=== PATIENT | male | born 1940 | race Caucasian/White ===

== ENCOUNTER → 2022-12-25 | Outpatient (CLI) | payer MEDICARE, OTHER ==
[~2022-12-25] MED LIST: FLOMAX 0.40.4 MG/CAP PO; PEPCID40 MG PO
== END ==
LOC: COL.RAD 07:07
DX: Z01.812 Encounter for preprocedural laboratory examination (principal); K57.30 Diverticulosis of large intestine without perforation or abscess without bleeding; K62.5 Hemorrhage of anus and rectum; R19.4 Change in bowel habit

== ENCOUNTER 2023-01-24 10:40 | Outpatient (RCR) | payer MEDICARE, OTHER | END 2023-02-01 | disposition home or self-care (01) | LOC: PT.GENESIS | DX: M25.562 Pain in left knee (principal) ==

== ENCOUNTER 2023-02-12 08:30 | Outpatient (RCR) | payer MEDICARE, OTHER | END 2023-03-03 | disposition home or self-care (01) | LOC: PT.GENESIS | DX: M25.562 Pain in left knee (principal) ==

== ENCOUNTER 2024-08-09 10:24 | Inpatient (IN) | payer MEDICARE, OTHER ==
[~2024-08-09] VITALS: Ht 182.9 cm; Wt 80.5 kg
[2024-08-09] MEDS ORDERED: Morphine 4 MG/ML VIAL IV ONE (11:00)
[2024-08-09 11:14] LABS: BASO % 0.3 % (0.0-2.0); EOS # 0.2 K/mm3 (0.0-0.7); EOS % 3.7 % (0.0-4.0); GRAN # 4.4 K/mm3 (1.4-6.5); HEMATOCRIT 37.3 % (42.0-52.0); HEMOGLOBIN 12.3 g/dl (13.5-18.0); LYMPH # 1.2 K/mm3 (1.2-3.4); LYMPH % 17.9 % (20.0-51.0); MEAN CELL VOLUME 88 fl (80.0-100.0); MEAN CORPUSCULAR HEMOGLOBIN 29 pg (27-31); MEAN CORPUSCULAR HGB CONC 33 g/dl (33.0-37.0); MEAN PLATELET VOLUME 9.7 fl (7.4-10.4); MONO # 0.6 K/mm3 (0.1-0.6); MONO % 9.8 % (1.7-9.3); PLATELET COUNT 231 K/mm3 (130-400); RED BLOOD COUNT 4.22 M/mm3 (4.20-5.60); REDCELL DISTRIBUTION WIDTH-CV 14.1 % (11.5-14.5)
[2024-08-09 11:21] LABS: ERYTHROCYTE SEDIMENTATION RATE 4 mm/hr (0-30)
[2024-08-09 11:43] LABS: ALBUMIN 3.5 g/dL (3.4-4.8); BILIRUBIN,TOTAL 0.4 mg/dL (0.2-1.2); C-REACTIVE PROTEIN 1.05 mg/dL (0.00-0.50); CALCIUM 9.2 mg/dL (8.4-10.2); CREATININE, serum 1.02 mg/dL (0.72-1.25); POTASSIUM 4.6 mEq/L (3.5-4.5); TOTAL PROTEIN 6.2 g/dl (6.2-8.1)
[2024-08-09] MEDS ORDERED: Ketorolac 15 MG/ML VIAL IV ONE (12:30)
[2024-08-09] MEDS ORDERED: DURICEF 500MG500 MG PO (13:02)
[2024-08-09] MEDS ORDERED: oxyCODONE 5 MG TAB PO PRN (13:45)
[2024-08-09] MEDS ORDERED: Acetaminophen 500 MG TAB PO PRN (13:45)
[2024-08-09] MEDS ORDERED: Ondansetron 4 MG/2 ML VIAL IV PRN (13:45)
[2024-08-09] MEDS ORDERED: Morphine 4 MG/ML VIAL IV PRN (14:00)
--- NOTE | 2024-08-09 14:00 | NUR ---
Vancomycin Initial Dosing Pharmacy Note Ordering provider: Atilio Indication/duration: Skin/Soft tissue infection, 5 days LABS: SCr 1.02, CrCl~55, GFR 74 Recommendation: Will start Vancomycin 1 gm IV q12h. Pharmacy will continue to closely monitor and check a trough on 08/11/24. Loading dose: 1.5 grams Maintenance dose: 1 gram every 12 hours Trough goal: 10-15 ug/mL
[2024-08-09 15:11] VITALS: BP 190/76; PULSE 55; TEMP 97.5
--- NOTE | 2024-08-09 15:13 | NUR ---
PATIENT ALERT AND ORIENTED X4. VSS. PATIENT HERE FOR LEFT GREAT TOE INFECTION S/P INGROWN TOENAIL SX. PATIENT REPORTS PAIN 6/10, REQUESTS PRN PAIN MEDICATION. IV TO RIGHT AC INT AND FLUSHES WELL. PATIENT ORIENTED TO ROOM AND POLICIES/PROCEDURES. INTAKE COMPLETE. NO FURTHER NEEDS. CALL LIGHT IN REACH.
[2024-08-09 16:16] VITALS: BP_SYST 190
[2024-08-09 18:19] VITALS: BP 160/77
[2024-08-09 19:13] VITALS: BP 166/69; PULSE 54; TEMP 97.5
[2024-08-09 20:00] VITALS: BP_SYST 166
--- NOTE | 2024-08-09 20:00 | NUR ---
PATIENT IS A&O. VSS. REPORTS MINIMAL DISCOMFORT IN LEFT GREAT TOE AND DENIES NEED FOR PAIN MEDS AT THIS TIME. 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 IV ABX INFUSING VIA PUMP INTO RIGHT AC IV. NO C/O N/V. HEAD TO TOE ASSESSMENT COMPLETE. INDEPENDENT IN ROOM. NO OTHER NEEDS AT THIS TIME. CALL LIGHT IN REACH.
[2024-08-09] MEDS ORDERED: Famotidine 20 MG TAB PO SCH (21:00)
[2024-08-09] MEDS ORDERED: Polyethylene Glycol 3350 17 GM PDS PO SCH (21:00)
[2024-08-10] VITALS (13 sets, daily range): BP systolic 153–185; BP diastolic 64–83; PULSE 54–71; TEMP 97.3–98.3
--- NOTE | 2024-08-10 08:37 | NUR ---
PT INDEPENDT IN ROOM. AM MEDS GIVEN, PAIN CONTROLLED WITH PO MEDS. IV ABX ORDERED. PT IS A FEBRILE. A/O X4. GREAT TOE LEFT FOOT SWOLLEN AND RED. VSS.
--- NOTE | 2024-08-10 09:52 | NUR ---
[employer] met with pt and his , Milly [phone] to discuss discharge planning. He lives with his in [place]. He sees Dr. Pacheco for PCP needs and obtains medications from [facility] with no difficulties. He reports to have Medicare A/B and [facility] [place] [employer] insurance. He is independent with ADLS and uses no DME. reports they copy of the [facility]-[facility] is at home listing her then their daughter. No further needs. Discharge Plan: home
--- NOTE | 2024-08-10 10:04 | NUR ---
Initial visit; Patient thanked [employer] for looking in on him. They had a short visit about what brought him here to the hospital and following the [employer]'s offer of God's blessings said he should be getting well soon.
[2024-08-10] MEDS ORDERED: hydrALAZINE 20 MG/ML 1 ML VIAL IV PRN (20:00)
[2024-08-11] VITALS (12 sets, daily range): BP systolic 123–165; BP diastolic 60–82; PULSE 66–79; TEMP 97.5–98.1
--- NOTE | 2024-08-11 08:08 | NUR ---
Left great toe wound site has minimal swelling. Redness and warmth to left great toe, patient reports it is improving. No active drainagage. Patient reports no pain. Dorsalis pedis pulses and posterior tibial pules strong and equal bilaterally.
[2024-08-11 10:10] LABS: BASO % 0.4 % (0.0-2.0); EOS % 0.4 % (0.0-4.0); GRAN # 9.5 K/mm3 (1.4-6.5); GRAN % 84.8 % (42.2-75.2); LYMPH # 0.9 K/mm3 (1.2-3.4); LYMPH % 7.6 % (20.0-51.0); MEAN CELL VOLUME 85 fl (80.0-100.0); MEAN CORPUSCULAR HEMOGLOBIN 29 pg (27-31); MEAN CORPUSCULAR HGB CONC 34 g/dl (33.0-37.0); MONO # 0.7 K/mm3 (0.1-0.6); MONO % 6.4 % (1.7-9.3); PLATELET COUNT 241 K/mm3 (130-400); RED BLOOD COUNT 4.15 M/mm3 (4.20-5.60)
[2024-08-11 10:21] LABS: HEMATOCRIT 35.3 % (42.0-52.0)
--- NOTE | 2024-08-11 15:53 | NUR ---
PT REPORTING NAUSEA AND VOMITING OF TEA. IV REGLAN GIVEN PER ORDERS.
[2024-08-11 19:26] LABS: CLOSTRIDIUM DIFF A/B NEG
--- NOTE | 2024-08-11 20:59 | NUR ---
PATIENT'S C-DIFF RESULTS ARE NEGATIVE. CONTACT PRECAUTIONS DISCONTINUED
--- NOTE | 2024-08-11 21:04 | NUR ---
PATIENT RESTING IN BED WATCHING TV. DENIES PAIN IN THE LEFT GREAT TOE WHILE AT REST. DENIES ANY NAUSEA OR VOMITING. CALL LIGHT WITHIN REACH. BED IS LOCKED AND IN LOW POSITION
[2024-08-12 00:37] VITALS: BP 155/71; PULSE 66; TEMP 98.2
[2024-08-12 00:38] VITALS: BP_SYST 155
[2024-08-12 04:06] VITALS: BP 131/70; PULSE 78; TEMP 98.3
[2024-08-12 04:07] VITALS: BP_SYST 131
[2024-08-12 07:07] LABS: BASO % 0.4 % (0.0-2.0); EOS # 0.2 K/mm3 (0.0-0.7); GRAN # 5.8 K/mm3 (1.4-6.5); GRAN % 72.5 % (42.2-75.2); HEMOGLOBIN 11.6 g/dl (13.5-18.0); LYMPH # 1.2 K/mm3 (1.2-3.4); LYMPH % 14.6 % (20.0-51.0); MEAN CELL VOLUME 86 fl (80.0-100.0); MEAN CORPUSCULAR HEMOGLOBIN 29 pg (27-31); MEAN CORPUSCULAR HGB CONC 34 g/dl (33.0-37.0); MEAN PLATELET VOLUME 10.2 fl (7.4-10.4); MONO # 0.8 K/mm3 (0.1-0.6); MONO % 10.2 % (1.7-9.3); PLATELET COUNT 245 K/mm3 (130-400); RED BLOOD COUNT 4.03 M/mm3 (4.20-5.60); REDCELL DISTRIBUTION WIDTH-CV 13.8 % (11.5-14.5)
[2024-08-12 07:10] LABS: CALCIUM 8.9 mg/dL (8.4-10.2); CREATININE, serum 0.94 mg/dL (0.72-1.25); POTASSIUM 4.1 mEq/L (3.5-4.5)
[2024-08-12 07:11] LABS: HEMATOCRIT 34.5 % (42.0-52.0)
[2024-08-12 07:31] VITALS: BP 169/85; PULSE 68; TEMP 97.6
[2024-08-12] MEDS ORDERED: Doxycycline Monohydrate 100 MG CAP PO SCH (09:00)
[2024-08-12] MEDS ORDERED: AMOXICILLIN 8751 TAB PO (10:03)
[2024-08-12] MEDS ORDERED: MONODOX100 PO (10:03)
[2024-08-12] MEDS ORDERED: Loperamide 2 MG CAP PO PRN (10:15)
--- NOTE | 2024-08-12 10:57 | NUR ---
PATIENT ALERT AND ORIENTED X4. VSS. PATIENT HERE FOR LEFT GREAT TOE CELLULITIS WITH DRAINAGE. PATIENT TOLERATING PO. PATIENT REPORTS PAIN 3/10, DENIES NEED FOR PAIN MEDICATION THIS AM. AM MEDS ADMINISTERED. IV ZOSYN INFUSING INTO IV IN RIGHT FA. NO FURTHER NEEDS. CALL LIGHTIN REACH.
--- NOTE | 2024-08-12 12:09 | NUR ---
DISCHARGE INSTRUCTIONS PROVIDED. PATIENT EDUCATION GIVEN. IV DC'D. FOLLOW UP APPOINTMENTS DISCUSSED. MEDICATIONS REVIEWED. PATIENT DENIES ANY QUESTIONS OR CONCERNS. PATIENT ESCORTED OUT VIA WHEELCHAIR.
[2024-08-12] MEDS ORDERED: Amoxicillin/Clavulanate K+ 875/125 MG TAB PO SCH (17:00)
== END 2024-08-12 12:09 | disposition home or self-care (01) | DRG 863 ==
LOC: COL.ER 10:24 → SURG 13:10
PROVIDERS: Internal Medicine; Physician Assistant; ADMIT Internal Medicine
DX: T81.49XA Infection following a procedure, other surgical site, initial encounter (principal); L03.032 Cellulitis of left toe; N40.0 Benign prostatic hyperplasia without lower urinary tract symptoms; K21.9 Gastro-esophageal reflux disease without esophagitis; R19.7 Diarrhea, unspecified; Z79.899 Other long term (current) drug therapy
CPT/HCPCS: J0360; J1885; J2270; J2405; J2543; J3370; J7050